=== PATIENT | female | born 1990 | race Caucasian/White ===

== ENCOUNTER 2019-09-27 13:45 | Emergency (ER) | payer OTHER, MEDICARE ==
[2019-09-27] MEDS ORDERED: IBUPROFEN 800 MG TABLET PO ONE (14:48)
--- NOTE | 2019-09-27 14:51 | ER Document Report ---
HPI - HPI Time Seen by Provider: 09/27/19 14:41 Onset: Other - 2 days Onset/Duration: Persistent Quality of pain: Achy Pain Level: 5 Context: Patient states she was in an adult gymnastics class on a friend at her arm into the hoop and fell with the hoop underneath her armpit. Patient complains of right shoulder and scapula pain. Patient states she does have a previous history of shoulder injury and was told that she may need orthopedic surgery. Patient without any head injury or loss of consciousness. Exacerbated by: Movement Relieved by: Denies Similar symptoms previously: Yes - shoulder injury Recently seen / treated by doctor: No - ROS ROS below otherwise negative: Yes Systems Reviewed and Negative: Yes All other systems reviewed and negative - NEURO Neurology: DENIES: Weakness - GASTROINTESTINAL Gastrointestinal: DENIES: Nausea - REPRODUCTIVE LMP: Irregular, 1 year ago Reproductive: DENIES: : - MUSCULOSKELETAL Musculoskeletal: REPORTS: Extremity pain - RUE, Back Pain - DERM Skin Color: Normal Skin Problems: None Past Medical History - General Information source: Patient - Social History Smoking Status: Never Smoker Frequency of alcohol use: None Drug Abuse: None Occupation: none Family History: Reviewed & Not Pertinent Patient has homicidal ideation: No Neurological Medical History: Reports: Hx Seizures Traumatic Medical History: Reports: Hx Traumatic Brain Injury Surgical Hx: Negative Vertical Provider Document - CONSTITUTIONAL Agree With Documented VS: Yes Exam Limitations: No Limitations General Appearance: WD/WN, No Apparent Distress - HEENT HEENT: Atraumatic, Normocephalic - NECK Neck: Normal Inspection, Supple - RESPIRATORY Respiratory: Breath Sounds Normal, No Respiratory Distress - CARDIOVASCULAR Cardiovascular: Regular Rate, Regular Rhythm, No Murmur Pulses: Normal: Radial - BACK Back: Abnormal Inspection - Right trapezius muscle tenderness, tenderness over right scapula - MUSCULOSKELETAL/EXTREMETIES Musculoskeletal/Extremeties: MAEW, Tender - Right shoulder joint tenderness with abduction and extension, no obvious deformity dislocation, No Edema - NEURO Level of Consciousness: Awake, Alert, Appropriate Motor/Sensory: No Motor Deficit, No Sensory Deficit - DERM Integumentary: Warm, Dry, No Rash Course - Vital Signs Vital signs: Temp Pulse Resp BP Pulse Ox 98.7 F 16 L 16 110/67 99 09/27/19 14:12 09/27/19 14:12 09/27/19 14:12 09/27/19 14:12 09/27/19 14:12 - Diagnostic Test Radiology reviewed: Image reviewed, Reports reviewed Procedures - Immobilization Right Shoulder Pre-Proc Neuro Vasc Exam: Normal Immobilizer type: Shoulder immobilizer Performed by: RN Post-Proc Neuro Vasc Exam: Normal Alignment checked and good: Yes Discharge - Discharge Clinical Impression: Sprain of shoulder, right Qualifiers: Encounter type: initial encounter Shoulder sprain type: unspecified sprain Qualified Code(s): S43.401A - Unspecified sprain of right shoulder joint, initial encounter Trapezius muscle strain Qualifiers: Encounter type: initial encounter Laterality: right Qualified Code(s): S46.811A - Strain of other muscles, fascia and tendons at shoulder and upper arm level, right arm, initial encounter Condition: Stable Disposition: HOME, SELF-CARE Instructions: Muscle Strain ([facility]), Shoulder Injury ([facility]), Temporary Sling ([facility]) Additional Instructions: Return immediately for any new or worsening symptoms Followup with your primary care provider, call tomorrow to make a followup appointment Follow-up with orthopedics for further evaluation, call Saturday for an appointment Wear sling for the next 4 days while awake only, perform gentle range of motion exercises daily Prescriptions: Lidocaine [Lidoderm 5% (700 mg) Transdermal Patch] 1 patch TP DAILY PRN #10 adh..patch PRN Reason: Naproxen [Naprosyn 250 Nmg Tablet] 1 tab PO BID #14 tablet Referrals: [facility] [Provider Group] - Follow up as needed [facility] [Provider Group] - Follow up as needed
--- NOTE | 2019-09-27 15:28 | RADIOLOGY REPORT (SQ) ---
EXAM DESCRIPTION: SCAPULA RIGHT; SHOULDER RIGHT 2 OR MORE VIEWS IMAGES COMPLETED DATE/TIME: 09/27/2019 2:11 pm REASON FOR STUDY: fall, shoulder/scapula pain. COMPARISON: None. NUMBER OF VIEWS: Four views. TECHNIQUE: Internal rotation, external rotation, and Y view images acquired of the right shoulder. AP view of the scapula. LIMITATIONS: None. FINDINGS: MINERALIZATION: Normal. BONES: No acute fracture. No worrisome bone lesions. JOINTS: No dislocation. VISUALIZED LUNGS AND RIBS: No pneumothorax. No rib fracture. SOFT TISSUES: No radiopaque foreign body. OTHER: No other significant finding. IMPRESSION: No radiographic abnormality of the right shoulder or scapula. No acute fracture or disl ocation. TECHNICAL DOCUMENTATION: JOB ID: [id number] 2010 [employer]- All Rights Reserved Reading location - IP/workstation name: [email or web address]
--- NOTE | 2019-09-27 15:28 | RADIOLOGY REPORT (SQ) ---
EXAM DESCRIPTION: SCAPULA RIGHT; SHOULDER RIGHT 2 OR MORE VIEWS IMAGES COMPLETED DATE/TIME: 09/27/2019 2:11 pm REASON FOR STUDY: fall, shoulder/scapula pain. COMPARISON: None. NUMBER OF VIEWS: Four views. TECHNIQUE: Internal rotation, external rotation, and Y view images acquired of the right shoulder. AP view of the scapula. LIMITATIONS: None. FINDINGS: MINERALIZATION: Normal. BONES: No acute fracture. No worrisome bone lesions. JOINTS: No dislocation. VISUALIZED LUNGS AND RIBS: No pneumothorax. No rib fracture. SOFT TISSUES: No radiopaque foreign body. OTHER: No other significant finding. IMPRESSION: No radiographic abnormality of the right shoulder or scapula. No acute fracture or disl ocation. TECHNICAL DOCUMENTATION: JOB ID: [id number] 2010 [employer]- All Rights Reserved Reading location - IP/workstation name: [email or web address]
[2019-09-27] MEDS ORDERED: LIDOCAINE 5% (700 MG) TRANSDERMAL ADH..PATCH TP ONE (15:31)
[2019-09-27 15:55] VITALS: BP 112/79
== END 2019-09-27 15:58 | disposition home or self-care (01) ==
LOC: ER 13:45
DX: S43.401A Unspecified sprain of right shoulder joint, initial encounter (principal); S46.811A Strain of other muscles, fascia and tendons at shoulder and upper arm level, right arm, initial encounter; M25.511 Pain in right shoulder; M79.601 Pain in right arm; M54.9 Dorsalgia, unspecified; X58.XXXA Exposure to other specified factors, initial encounter; Y93.43 Activity, gymnastics
CPT/HCPCS: 99283

== ENCOUNTER → 2020-01-07 | Day surgery (SDC) | payer MEDICARE ==
--- NOTE | 2020-01-07 15:28 | RADIOLOGY REPORT (SQ) ---
EXAM DESCRIPTION: ARTHRO HIP INJ W/ANESTHESIA; FLUORO/NEEDLE PLACEMENT IMAGES COMPLETED DATE/TIME: 01/07/2020 2:23 pm REASON FOR STUDY: M25.851 OTHER SPECIFIED JOINT DISORDERS, RIGHT HIP M25.851 OTHER SPECIFIED JOINT DISORDERS, RIGHT HIP COMPARISON: None. FLUOROSCOPY TIME: 7 seconds 1 images saved to PACS. LIMITATIONS: None. PROCEDURE: Procedure, risks, benefits and alternatives explained to patient who then gave written c onsent. The right hip was marked and a time-out was called for correct marking verification. Entry site marked using fluoroscopic guidance. Hip prepped and draped using sterile technique. Local ane sthesia achieved using 1% lidocaine injection. Hypodermic needle introduced into the joint space un ulises direct fluoroscopic visualization. Non-ionic contrast instilled to confirm intra-articular posit ion. Dilute gadolinium solution then injected. Needle removed and entry site covered with sterile bandage. No immediate complications noted. TECHNIQUE: Digital images acquired during fluoroscopy and stored on PACS. Patient immediately take n to the MR suite for additional imaging. INJECTION LOCATION: Right hip. CONTRAST TYPE AND AMOUNT: 1 cc Omnipaque 10 cc Prohance/Saline mixture. IMPRESSION: SUCCESSFUL NEEDLE PLACEMENT AND INJECTION FOR RIGHT HIP MR ARTHROGRAM. COMMENT: Quality ID [id number]: Final reports for procedures using fluoroscopy that document radiation exp osure indices, or exposure time and number of fluorographic images (if radiation exposure indices are not available) TECHNICAL DOCUMENTATION: JOB ID: [id number] 2010 [employer]- All Rights Reserved Reading location - IP/workstation name: [email or web address]
--- NOTE | 2020-01-07 15:32 | RADIOLOGY REPORT (SQ) ---
EXAM DESCRIPTION: MRI RT LOWER JOINT WITH IMAGES COMPLETED DATE/TIME: 01/07/2020 3:12 pm REASON FOR STUDY: M25.851 OTHER SPECIFIED JOINT DISORDERS, RIGHT HIP M25.851 OTHER SPECIFIED JOINT DISORDERS, RIGHT HIP COMPARISON: None. TECHNIQUE: Post arthrogram imaging is performed using T1 and T1 and T2 fat saturated sequences of th e pelvis and specific hip of interest. LIMITATIONS: None. FINDINGS: JOINT DISTENSION: Adequate. No loose body. BONE MARROW: No edema. No marrow replacement. FEMORAL HEAD, NECK, AND ACETABULUM: No occult fracture. No osteophytes or subchondral cysts. Normal s phericity of femoral head/neck junction. No acetabular dysplasia. No evidence of femoroacetabular imp ingement. PUBIC RAMI AND ISCHIUM: No occult fracture. SACRUM AND IVELISSE: SI joints normal in signal. No occult fracture. EFFUSIONS: None. LABRUM AND CARTILAGE: No labral tear. Cartilage of normal thickness without delamination. MUSCLES AND SOFT TISSUES: Adductors and piriformis normal. Abductors and greater trochanteric bursa n ormal without edema or fluid. Iliopsoas bursa without fluid. Hamstring attachments without edema or t ear. PELVIC SOFT TISSUES: No masses or adenopathy. SCIATIC NERVE: Identified without masses. OTHER: No other significant finding. IMPRESSION: NORMAL MRI ARTHROGRAM OF THE HIP. TECHNICAL DOCUMENTATION: JOB ID: [id number] 2010 [employer]- All Rights Reserved Reading location - IP/workstation name: [email or web address]
== END ==
LOC: RAD 13:15
PROVIDERS: ATTEND Orthopaedic Surgery Sports Medicine
DX: M25.851 Other specified joint disorders, right hip (principal)
CPT/HCPCS: 73722; 77002; 27095; A9576

== ENCOUNTER 2020-02-22 07:27 | Observation (INO) | payer MEDICAID, MEDICARE ==
[~2020-02-22 07:27] MED LIST: PROPOFOL INJ 200 MG/20 ML VIAL IV ONE
[2020-02-22] MEDS ORDERED: MIDAZOLAM 2 MG/2 ML INJ ONE ×2 (08:56→09:16)
[2020-02-22] MEDS ORDERED: LORAZEPAM INJ 2 MG/1 ML VIAL ONE ×2 (09:27→11:05)
[2020-02-22] MEDS ORDERED: LEVETIRACETAM 1500 MG/NACL-ISO 1,500 MG/100 ML RTUPB IV ONE (10:07)
[2020-02-22 11:10] LABS: HEMATOCRIT 40.9 % (36.0-47.0); HEMOGLOBIN 13.9 g/dL (12.0-15.5); MEAN CORPUSCULAR HEMOGLOBIN 30.3 pg (27.0-33.4); MEAN CORPUSCULAR VOLUME 89 fl (80-97); PLATELET COUNT 305 10^3/uL (150-450); RED CELL DISTRIBUTION WIDTH 13.3 % (11.5-14.0); WHITE BLOOD COUNT 4.8 10^3/uL (4.0-10.5)
[2020-02-22] MEDS ORDERED: LORAZEPAM INJ 2 MG/1 ML VIAL IV ONE (11:19)
[2020-02-22] MEDS ORDERED: ACETAMINOPHEN 325 MG TABLET PO PRN (12:11)
[2020-02-22] MEDS ORDERED: ONDANSETRON 4 MG TAB.RAPDIS PO PRN (12:11)
[2020-02-22 12:16] LABS: ALKALINE PHOSPHATASE 76 U/L (38-126); ANION GAP 9 (5-19); ASPARTATE AMINO TRANSFERASE 18 U/L (14-36); BILIRUBIN,TOTAL 0.7 mg/dL (0.2-1.3); BLOOD UREA NITROGEN 10 mg/dL (7-20); CALCIUM 9.6 mg/dL (8.4-10.2); CARBON DIOXIDE 25 mmol/L (22-30); CHLORIDE 105 mmol/L (98-107); CREATINE KINASE 56 U/L (30-135); GLUCOSE 85 mg/dL (75-110); POTASSIUM 4.1 mmol/L (3.6-5.0); TOTAL PROTEIN 7.5 g/dL (6.3-8.2)
[2020-02-22] MEDS ORDERED: LORAZEPAM INJ 2 MG/1 ML VIAL IV PRN (12:19)
[2020-02-22] MEDS ORDERED: PHENYTOIN SODIUM INJ/PF 250 MG/5 ML SDV IV PRN (12:20)
--- NOTE | 2020-02-22 14:32 | Operative Report ---
Operative Report DATE OF SURGERY: 02/22/20 Operative Report: The risk, benefits and alternatives of the procedure including the risk of bleeding, perforation requiring surgery have been explained to the patient in detail and informed consent has been obtained. Patient is placed in left, lateral decubital position. Timeout was called. Propofol medication is administered. Rectal examination is done which did not reveal any masses, tears or fissures. An Olympus videoscope was introduced into the patient's rectum. Scope was then carefully advanced all the way to the cecum. Cecum was identified by the usual anatomical landmarks including the ileocecal valve as well as the appendiceal office. Intubation of the terminal ileum was done. Scope was then sequentially pulled back via the various segments of the colon including the ascending colon, hepatic flexure, transverse colon, splenic flexure, descending colon finding to the rectosigmoid portions of the colon. Retroflexion maneuver is performed. The risks benefits and alternatives of the procedure explained to the patient in detail and informed consent is obtained.A GIF Olympus video scope was inserted into the patient's mouth and hypopharynx, the esophagus is identified intubated and insufflated, the scope was then advanced through the esophagus stomach and duodenum, retroflexion maneuver is done, the esophagus stomach and first and second portions of the duodenum examined PREOPERATIVE DIAGNOSIS: Change of bowel habits. Dyspepsia POSTOPERATIVE DIAGNOSIS: Terminal ileum biopsy rule out Crohn's disease. Duodenitis status post biopsy rule out celiac disease gastritis status post biopsy rule out Helicobacter pylori OPERATION: Colonoscopy with biopsy. EGD with biopsy SURGEON: ELIO POOL ANESTHESIA: LMAC TISSUE REMOVED OR ALTERED: As noted above. COMPLICATIONS: Patient noted to have seizure activity following procedure and has subsequently been admitted overnight ESTIMATED BLOOD LOSS: None. INTRAOPERATIVE FINDINGS: As noted above. PROCEDURE: Patient tolerated procedure well. No complications related to actual procedure were noted post procedure. She did appear to have seizure activity which was treated with Ativan and Versed. She is being admitted overnight with a loading dose of IV Keppra She is on the hospitalist service No GI complications are noted We will wait on biopsy Further recommendations to follow
[2020-02-22] MEDS ORDERED: METOPROLOL TARTRATE 50 MG TABLET PO PRN (17:34)
[2020-02-22] MEDS ORDERED: METOPROLOL TARTRATE PF/INJ 5 MG/5 ML SDV IV PRN (17:39)
--- NOTE | 2020-02-22 18:49 | PDOC H&P ---
History of Present Illness Admission Date/PCP: 02/22/20 12:10 ELISHA ESPINAL MD Patient complains of: Seizure History of Present Illness: MYKE HANDY is a 29 year old female with significant history of seizure disorder (treated with Keppra) who is transferred over to our care from outpatient surgery due to seizure activity following outpatient EGD/colonoscopy. Per nurse patient expressed five total episodes of tonic-clonic seizure activity each lasting 2-5 minutes in duration with ~30 seconds without serizure activity between each. Last seizure event at 10:00. All events were witnessed. She was treated with versed and ativan. Patient with post-ictal state as per nursing. Patient reports hx of seizure disorder since TBI in 2015. She has two tonic- clonic seizures on average per month with several "minor-seizures" daily. Reports aura of sweet smell and taste. Most recent seizure event December 2019 following breast augmentation. States that todays seizure episode similar to episodes in the past. She takes 1,000mg Keppra daily but has been taking decreased Keppra dose past two days, as instructed to by doctor. Her neurologist is with the [place] and she has not seen them for several years. Her last EEG was in 2016. On initial evaluation patient is found to be hemodynamically stable with VSS. She is alert and oriented. No post-ictal state noted. Labs benign including CK. Patient will be admitted to the hospitalist team for further observation and treatment. Past Medical History Cardiac Medical History: Denies: Congestive Heart Failure, Coronary Artery Disease, Myocardial Infarction, Hypertension, Pulmonary Embolism, Heart Murmur Pulmonary Medical History: Reports: Asthma, Pneumonia Denies: Bronchitis, Chronic Obstructive Pulmonary Disease (COPD) Neurological Medical History: Reports: Migraine, Seizures Endocrine Medical History: Denies: Hyperthyroidism, Hypothyroidism Renal/ Medical History: Denies: Chronic Kidney Disease Malignancy Medical History: Reports: None GI Medical History: Reports: Gastroesophageal Reflux Disease Musculoskeltal Medical History: Denies: Arthritis Psychiatric Medical History: Reports: Depression Denies: Alcohol Dependency, Tobacco Dependency Traumatic Medical History: Reports: Traumatic Brain Injury Hematology: Reports: Anemia Past Surgical History Past Surgical History: Reports: Other - Breast augmentation Social History Information Source: Patient Lives with: Family, Spouse/Significant other Smoking Status: Never Smoker Electronic Cigarette use?: No Frequency of Alcohol Use: Rare Hx Recreational Drug Use: No Drugs: None - Advance Directive Resuscitation Status: Full Code Family History Family History: Other - Significant history of rheumatoid disease in family Parental Family History Reviewed: Yes Children Family History Reviewed: Yes Sibling(s) Family History Reviewed.: Yes Medication/Allergy Home Medications: Levetiracetam [Keppra 500 mg Tablet] 1,000 mg PO DAILY 02/22/20 Linaclotide [Linzess] 72 mg PO DAILY 02/22/20 Topiramate [Topamax] 25 mg PO DAILY 02/22/20 Allergies/Adverse Reactions: acetaminophen [From Percocet] Allergy (Severe, Verified 02/22/20 07:41) Swelling of Throat oxycodone [From Percocet] Allergy (Severe, Verified 02/22/20 07:41) Swelling of Throat strawberry Allergy (Severe, Verified 02/22/20 07:41) Anaphylaxis milk Adverse Reaction (Mild, Verified 02/22/20 07:41) Diarrhea Review of Systems Constitutional: PRESENT: headache(s) - chronic / daily. ABSENT: chills, fatigue, fever(s), night sweats, weakness Eyes: ABSENT: visual disturbances Ears: ABSENT: hearing changes Nose, Mouth, and Throat: PRESENT: headache(s). ABSENT: vertigo Cardiovascular: ABSENT: chest pain, dyspnea on exertion Respiratory: ABSENT: cough, dyspnea Gastrointestinal: ABSENT: abdominal pain, diarrhea, nausea, vomiting Genitourinary: ABSENT: difficulty urinating, dysuria Musculoskeletal: ABSENT: back pain, joint swelling Integumentary: ABSENT: pruritus, rash Neurological: PRESENT: convulsions, other - Seizures. ABSENT: confusion, dizziness, focal weakness, syncope, tingling, tremor(s), vertigo, weakness Psychiatric: PRESENT: depression. ABSENT: anxiety, hallucinations, homidical ideation, suicidal ideation Endocrine: ABSENT: cold intolerance Hematologic/Lymphatic: ABSENT: easy bleeding, easy bruising, lymphadenopathy Physical Exam Vital Signs: Temp Pulse Resp BP Pulse Ox 98.1 F 117 H 17 95/64 L 100 02/22/20 16:24 02/22/20 16:24 02/22/20 16:24 02/22/20 16:24 02/22/20 16:24 Intake & Output 02/21/20 02/22/20 02/23/20 06:59 06:59 06:59 Intake Total 600 Balance 600 Weight 67.72 kg General appearance: PRESENT: no acute distress, cooperative, well-developed, well-nourished Head exam: PRESENT: atraumatic, normocephalic Eye exam: PRESENT: conjunctival injection, EOMI, PERRLA. ABSENT: nystagmus, scleral icterus Mouth exam: PRESENT: moist, neck supple, tongue midline Neck exam: PRESENT: full ROM. ABSENT: lymphadenopathy, tenderness, tracheal deviation Respiratory exam: PRESENT: clear to auscultation juvenal, symmetrical, unlabored. ABSENT: crackles, decreased breath sounds, tachypnea, wheezes Cardiovascular exam: PRESENT: +S1, +S2, tachycardia. ABSENT: diastolic murmur, systolic murmur Pulses: PRESENT: normal radial pulses GI/Abdominal exam: PRESENT: normal bowel sounds, soft. ABSENT: distended, tenderness Extremities exam: PRESENT: full ROM. ABSENT: tenderness Musculoskeletal exam: PRESENT: ambulatory, full ROM. ABSENT: deformity, dislocation Neurological exam: PRESENT: alert, awake, oriented to person, oriented to place, oriented to time, oriented to situation, CN II-XII grossly intact, normal gait, other - Without post-ictal state Psychiatric exam: PRESENT: appropriate affect, normal mood Skin exam: PRESENT: dry, intact, warm Results Laboratory Results: 02/22/20 10:54 02/22/20 10:54 02/22/20 02/22/20 10:54 10:54 WBC 4.8 RBC 4.60 Hgb 13.9 Hct 40.9 MCV 89 MCH 30.3 MCHC 34.0 RDW 13.3 Plt Count 305 Sodium 139.3 Potassium 4.1 Chloride 105 Carbon Dioxide 25 Anion Gap 9 BUN 10 Creatinine 0.68 Est GFR ( Amer) > 60 Glucose 85 Calcium 9.6 Total Bilirubin 0.7 AST 18 Alkaline Phosphatase 76 Total Protein 7.5 Albumin 4.0 02/22/20 10:54 Creatine Kinase 56 Assessment and Plan - Diagnosis (1) Seizure disorder Is this a current diagnosis for this admission?: Yes Plan: Seizure vs post anesthesia recovery reaction. Pt reports reduced dose Keppra x2 days. Received 4mg versed and 6mg ativan. Without seizure activity since 10:00. Pt given 1500mg Keppra IV. Start Keppra 1000mg BID PO tomorrow. Ativan available in event of further seizure activity. (2) Migraine Qualifiers: Migraine type: chronic without aura Status migrainosus presence: without status migrainosus Intractability: not intractable Qualified Code(s): G43.709 - Chronic migraine without aura, not intractable, without status migrainosus Is this a current diagnosis for this admission?: Yes Plan: Home medication Topiramat 25mg PO daily. Resume. (3) Depression Qualifiers: Depression Type: major depressive disorder Major depression recurrence: unspecified whether recurrent Major depression episode severity: unspecified Is this a current diagnosis for this admission?: Yes (4) Change in bowel habit Is this a current diagnosis for this admission?: Yes Plan: EKG/colonoscopy completed today for investigation of change in bowel habbit. Results pending. - Plan Summary Summary: Switch over to PO keppra at home dose of 1000mg BID tomorrow. Plan for discharge home tomorrow. - Time Time Spent with patient: 35 or more minutes Medications reviewed and adjusted accordingly: Yes Anticipated Discharge Disposition: Home, Self Care Anticipated Discharge Timeframe: within 24 hours
[2020-02-22] MEDS: RINGERS SOLUTION,LACTATED 1,000 ML IV PRN (18:51)
[2020-02-23] MEDS: RINGERS SOLUTION,LACTATED 1,000 ML IV PRN ×2 (04:25→18:44)
[2020-02-23 05:56] LABS: HEMATOCRIT 38.4 % (36.0-47.0); HEMOGLOBIN 13.1 g/dL (12.0-15.5); MEAN CORPUSCULAR HEMOGLOBIN 30.1 pg (27.0-33.4); MEAN CORPUSCULAR HGB CONC 34.1 g/dL (32.0-36.0); MEAN CORPUSCULAR VOLUME 88 fl (80-97); PLATELET COUNT 301 10^3/uL (150-450); RED BLOOD COUNT 4.35 10^6/uL (3.72-5.28); RED CELL DISTRIBUTION WIDTH 12.8 % (11.5-14.0); WHITE BLOOD COUNT 4.8 10^3/uL (4.0-10.5)
[2020-02-23 06:12] LABS: ANION GAP 8 (5-19); BLOOD UREA NITROGEN 10 mg/dL (7-20); CALCIUM 9.1 mg/dL (8.4-10.2); CARBON DIOXIDE 25 mmol/L (22-30); CHLORIDE 106 mmol/L (98-107); GLUCOSE 74 mg/dL (75-110); POTASSIUM 4.1 mmol/L (3.6-5.0)
[2020-02-23] MEDS: LEVETIRACETAM 500 MG TABLET PO SCH ×2 (09:35→21:44)
[2020-02-23] MEDS ORDERED: TOPIRAMATE 25 MG TABLET PO SCH (10:00)
[2020-02-23] MEDS ORDERED: LORAZEPAM INJ 2 MG/1 ML VIAL ONE ×3 (15:22→16:30)
[2020-02-23] MEDS ORDERED: LORAZEPAM INJ 2 MG/1 ML VIAL IV ONE (15:30)
[2020-02-23] MEDS ORDERED: LORAZEPAM INJ 2 MG/1 ML VIAL IV PRN (18:27)
[2020-02-23] MEDS ORDERED: INFLUENZA QUAD (6MOS+) 2020-21 VAC 0.5 ML SYR IM ONE (18:30)
--- NOTE | 2020-02-23 18:39 | PDOC PROGRESS REPORT ---
Subjective Date:: 02/23/20 Subjective:: MYKE HANDY is a 29 year old female with significant history of seizur e disorder (treated with Keppra) who is transferred over to our care from outpatient surgery due to seizure activity following outpatient EGD/colonoscopy. Per nurse patient expressed five total episodes of tonic-clonic seizure activity each lasting 2-5 minutes in duration with ~30 seconds without serizure activity between each. Last seizure event at 10:00. All events were witnessed. She was treated with versed and ativan. Patient with post-ictal state as per nursing. Patient reports hx of seizure disorder since TBI in 2015. She has two tonic- clonic seizures on average per month with several "minor-seizures" daily. Reports aura of sweet smell and taste. Most recent seizure event December 2019 following breast augmentation. States that todays seizure episode similar to episodes in the past. She takes 1,000mg Keppra daily but has been taking decreased Keppra dose past two days, as instructed to by doctor. Her neurologist is with the [place] and she has not seen them for several years. Her last EEG was in 2015. On initial evaluation patient is found to be hemodynamically stable with VSS. She is alert and oriented. No post-ictal state noted. Labs benign including CK. Patient will be admitted to the hospitalist team for further observation and treatment. 02/23/20 patient was seen and examined at bedside. According to her she has been having generalized tonic-clonic seizure about 3x a month as well as "minor" seizures about 3x a day. She has not followed up with a neurologist for years. She is currently on topamax 25 mg daily and keppra 1000 BID. Since resuming care this morning she's had 1 episode of grand mal seizure requiring ativan and 1 episode of non grand mal seizure. I have ordered an EEG and increased her dose of topamax and put PRN ativan. Reason For Visit: SEIZURE Physical Exam Vital Signs: Temp Pulse Resp BP Pulse Ox 98.0 F 115 H 17 119/78 100 02/23/20 16:35 02/23/20 16:35 02/23/20 16:35 02/23/20 16:35 02/23/20 16:35 Intake & Output 02/22/20 02/23/20 02/24/20 06:59 06:59 06:59 Intake Total 2372 640 Balance 2372 640 Weight 72.4 kg General appearance: PRESENT: no acute distress, cooperative Head exam: PRESENT: atraumatic, normocephalic Eye exam: PRESENT: EOMI, PERRLA Mouth exam: PRESENT: moist Neck exam: PRESENT: full ROM Respiratory exam: PRESENT: clear to auscultation juvenal, symmetrical, unlabored Cardiovascular exam: PRESENT: RRR, +S1, +S2 GI/Abdominal exam: PRESENT: normal bowel sounds, soft. ABSENT: rebound, tenderness Extremities exam: PRESENT: full ROM Musculoskeletal exam: PRESENT: full ROM Neurological exam: PRESENT: alert, awake, oriented to person, oriented to place, oriented to time, oriented to situation Psychiatric exam: PRESENT: normal mood Skin exam: PRESENT: normal color Results Laboratory Results: 02/23/20 05:04 02/23/20 05:04 02/23/20 02/23/20 05:04 05:04 WBC 4.8 RBC 4.35 Hgb 13.1 Hct 38.4 MCV 88 MCH 30.1 MCHC 34.1 RDW 12.8 Plt Count 301 Sodium 139.4 Potassium 4.1 Chloride 106 Carbon Dioxide 25 Anion Gap 8 BUN 10 Creatinine 0.68 Est GFR ( Amer) > 60 Glucose 74 L Calcium 9.1 Magnesium 1.9 02/22/20 10:54 Creatine Kinase 56 Assessment and Plan - Diagnosis (1) Seizure disorder Is this a current diagnosis for this admission?: Yes Plan: Seizure vs post anesthesia recovery reaction. Pt reports reduced dose Keppra x2 days. Received 4mg versed and 6mg ativan. Pt given 1500mg Keppra IV. Start Keppra 1000mg BID PO increased topiramate 50 mg daily from 25 EEG ordered seizure precaution Ativan available in event of further seizure activity. (2) Migraine Qualifiers: Migraine type: chronic without aura Status migrainosus presence: without status migrainosus Intractability: not intractable Qualified Code(s): G43.709 - Chronic migraine without aura, not intractable, without status migrainosus Is this a current diagnosis for this admission?: Yes Plan: Home medication Topiramate 50mg PO daily. Resume. (3) Change in bowel habit Is this a current diagnosis for this admission?: Yes Plan: EKG/colonoscopy completed today for investigation of change in bowel habit. Results reviewed essentially negative findings (4) Depression Qualifiers: Depression Type: major depressive disorder Major depression recurrence: unspecified whether recurrent Major depression episode severity: unspecified Is this a current diagnosis for this admission?: Yes Plan: - on sertralline? will confirm with the patient - Plan Summary Summary: - Time Time Spent with patient: 35 or more minutes Medications reviewed and adjusted accordingly: Yes Anticipated Discharge Disposition: Home, Self Care Anticipated Discharge Timeframe: within 48 hours
[2020-02-24 06:49] LABS: HEMATOCRIT 37.4 % (36.0-47.0); HEMOGLOBIN 12.6 g/dL (12.0-15.5); MEAN CORPUSCULAR HEMOGLOBIN 30.2 pg (27.0-33.4); MEAN CORPUSCULAR HGB CONC 33.8 g/dL (32.0-36.0); MEAN CORPUSCULAR VOLUME 89 fl (80-97); PLATELET COUNT 296 10^3/uL (150-450); RED BLOOD COUNT 4.19 10^6/uL (3.72-5.28)
[2020-02-24 07:24] LABS: ANION GAP 9 (5-19); BLOOD UREA NITROGEN 7 mg/dL (7-20); CARBON DIOXIDE 23 mmol/L (22-30); CHLORIDE 108 mmol/L (98-107); GLUCOSE 88 mg/dL (75-110); POTASSIUM 3.7 mmol/L (3.6-5.0)
[2020-02-24] MEDS: RINGERS SOLUTION,LACTATED 1,000 ML IV PRN (08:04)
[2020-02-24] MEDS ORDERED: TOPIRAMATE 25 MG TABLET PO SCH (10:00)
[2020-02-24] MEDS: LEVETIRACETAM 500 MG TABLET PO SCH (10:04)
[2020-02-24 11:58] VITALS: BP 124/86
--- NOTE | 2020-02-24 12:09 | PDOC DISCHARGE SUMMARY ---
Impression - Admit/DC Date/PCP Admission Date/Primary Care Provider: 02/22/20 12:10 ELISHA ESPINAL MD Discharge Date: 02/24/20 - Discharge Diagnosis (1) Seizure disorder Is this a current diagnosis for this admission?: Yes (2) Migraine Is this a current diagnosis for this admission?: Yes (3) Change in bowel habit Is this a current diagnosis for this admission?: Yes (4) Depression Is this a current diagnosis for this admission?: Yes - Assessment Summary: - Additional Information Resuscitation Status: Full Code Discharge Diet: As Tolerated Discharge Activity: No Driving, No tub bath Referrals: ELISHA ESPINAL MD [Primary Care Provider] - Prescriptions: Topiramate [Topamax 25 mg Tablet] 50 mg PO DAILY 30 Days #30 tablet Home Medications: Acetaminophen [Tylenol 325 mg Tablet] 325 mg PO DAILYP PRN 02/22/20 Diazepam [Valium 5 mg Tablet] 5 mg PO ASDIR PRN 02/22/20 Levetiracetam [Keppra 500 mg Tablet] 1,000 mg PO BID 02/22/20 Linaclotide [Linzess] 72 mg PO DAILY 02/22/20 Topiramate [Topamax 25 mg Tablet] 50 mg PO DAILY 30 Days #30 tablet 02/24/20 History of Present Illiness History of Present Illness: MYKE HANDY is a 29 year old female, with significant history of seizure disorder (treated with Keppra) who is transferred over to our care from outpatient surgery due to seizure activity following outpatient EGD/colonoscopy. Per nurse patient expressed five total episodes of tonic-clonic seizure activity each lasting 2-5 minutes in duration with ~30 seconds without serizure activity between each. Last seizure event at 10:00. All events were witnessed. She was treated with versed and ativan. Patient with post-ictal state as per nursing. Patient reports hx of seizure disorder since TBI in 2015. She has two tonic- clonic seizures on average per month with several "minor-seizures" daily. Reports aura of sweet smell and taste. Most recent seizure event December 2019 following breast augmentation. States that todays seizure episode similar to episodes in the past. She takes 1,000mg Keppra daily but has been taking decreased Keppra dose past two days, as instructed to by doctor. [facility] and she has not [facility] them for several years. Her last EEG was in 2016. On initial evaluation patient is found to be hemodynamically stable with VSS. She is alert and oriented. No post-ictal state noted. Labs benign including CK. Patient will be admitted to the hospitalist team for further observation and treatment. Hospital Course Hospital Course: 02/23/20 patient was seen and examined at bedside. According to her she has been having generalized tonic-clonic seizure about 3x a month as well as "minor" seizures about 3x a day. She has not followed up with a neurologist for years. She is currently on topamax 25 mg daily and keppra 1000 BID. Since resuming care this morning she's had 1 episode of grand mal seizure requiring ativan and 1 episode of non grand mal seizure. I have ordered an EEG and increased her dose of topamax and put PRN ativan. 02/24/20 She was seen and examined at bedside, no further seizure episodes. EEG done awaiting result. She is advised to follow up with a neurologist [facility] for recurrent seizures. Physical Exam Vital Signs: Temp Pulse Resp BP Pulse Ox 97.5 F 65 16 97/58 L 98 02/24/20 10:00 02/24/20 08:00 02/24/20 08:00 02/24/20 01:06 02/24/20 08:00 Intake & Output 02/23/20 02/24/20 02/25/20 06:59 06:59 06:59 Intake Total 2372 2720 Balance 2372 2720 Weight 72.4 kg 73.1 kg General appearance: PRESENT: no acute distress, cooperative Head exam: PRESENT: atraumatic, normocephalic Eye exam: PRESENT: EOMI, PERRLA Mouth exam: PRESENT: moist Neck exam: PRESENT: full ROM Cardiovascular exam: PRESENT: RRR, +S1, +S2 Pulses: PRESENT: +2 pedal pulses bilateral GI/Abdominal exam: PRESENT: normal bowel sounds, soft. ABSENT: rebound, tenderness Extremities exam: PRESENT: full ROM Musculoskeletal exam: PRESENT: full ROM Neurological exam: PRESENT: alert, awake, oriented to person, oriented to place, oriented to time, oriented to situation Psychiatric exam: PRESENT: normal mood Skin exam: PRESENT: normal color Results Laboratory Results: WBC 5.0 10^3/uL (4.0-10.5) 02/24/20 06:30 RBC 4.19 10^6/uL (3.72-5.28) 02/24/20 06:30 Hgb 12.6 g/dL (12.0-15.5) 02/24/20 06:30 Hct 37.4 % (36.0-47.0) 02/24/20 06:30 MCV 89 fl (80-97) 02/24/20 06:30 MCH 30.2 pg (27.0-33.4) 02/24/20 06:30 MCHC 33.8 g/dL (32.0-36.0) 02/24/20 06:30 RDW 13.0 % (11.5-14.0) 02/24/20 06:30 Plt Count 296 10^3/uL (150-450) 02/24/20 06:30 Sodium 140.4 mmol/L (137-145) 02/24/20 06:30 Potassium 3.7 mmol/L (3.6-5.0) 02/24/20 06:30 Chloride 108 mmol/L (98-107) H 02/24/20 06:30 Carbon Dioxide 23 mmol/L (22-30) 02/24/20 06:30 Anion Gap 9 (5-19) 02/24/20 06:30 BUN 7 mg/dL (7-20) 02/24/20 06:30 Creatinine 0.69 mg/dL (0.52-1.25) 02/24/20 06:30 Est GFR ( Amer) > 60 (>60) 02/24/20 06:30 Est GFR (MDRD) Non-Af > 60 (>60) 02/24/20 06:30 Glucose 88 mg/dL (75-110) 02/24/20 06:30 POC Glucose 102 mg/dL (70-110) 02/23/20 15:26 Calcium 9.0 mg/dL (8.4-10.2) 02/24/20 06:30 Magnesium 1.9 mg/dL (1.6-2.3) 02/23/20 05:04 Total Bilirubin 0.7 mg/dL (0.2-1.3) 02/22/20 10:54 Direct Bilirubin 0.0 mg/dL (0.0-0.4) 02/22/20 10:54 Neonat Total Bilirubin Not Reportable 02/22/20 10:54 Neonat Direct Bilirubin Not Reportable 02/22/20 10:54 Neonat Indirect Bili Not Reportable 02/22/20 10:54 AST 18 U/L (14-36) 02/22/20 10:54 ALT 5 U/L (<35) 02/22/20 10:54 Alkaline Phosphatase 76 U/L (38-126) 02/22/20 10:54 Creatine Kinase 56 U/L (30-135) 02/22/20 10:54 Total Protein 7.5 g/dL (6.3-8.2) 02/22/20 10:54 Albumin 4.0 g/dL (3.5-5.0) 02/22/20 10:54 Plan Plan of Treatment: - MUST follow up with Neurologist as soon as possible for seizure management - follow up with Gastroenterology for chronic constipation Time Spent: Greater than 30 Minutes Stroke Is this a Stroke Patient?: No Acute Heart Failure Is this a Heart Failure Patient?: No
--- NOTE | 2020-02-24 15:42 | NEURO WORKBENCH EEG REPORT ---
EEG Report Patient: Tressa Saravia ID: [id number] Referring Doctor: Priscilla Nichols DOS: 02/24/2020 Medications: Keppra, Topamax History This is a 29 year old left handed female with a history of seizures since age 21, TBI, migraine, asthma, pneumonia, GERD, anxiety, depression, anemia, breast augmentation, hernia repair, liposuction who had seizures on 02/21 and 02/22. She shakes on and off. This EEG was requested for seizures. EEG Interpretation This EEG was recorded in the awake, drowsy, and sleep states. The awake EEG is characterized by a well-organized background with a well-developed and reactive posterior dominant rhythm of 9.5 Hz. The remainder of the background was characterized by a combination of alpha with some beta frequencies. Drowsiness was characterized by slowing of the background rhythms. Vertex waves and sleep spindles were seen in the midline head regions. Photic stimulation resulted in no significant changes. There were no epileptiform abnormalities. There was one brief episode of minimal head shaking that had no EEG correlate aside from movement artifact. The EKG showed a regular rhythm with a period of possible tachycardia that may have been impaired by artifact. EEG Classification * EKG possible tachycardia with artifact EEG Impression This EEG is within normal limits for age. The EKG had artifact with what appeared to be possible tachycardia which may require further investigation. There was one episode of what appeared to be minimal head shaking with no EEG correlate. INTERPRETING NEUROLOGIST: Alessia Sol MD, FRCPC Board Certified in Neurology, with special qualification in Child Neurology, and in Clinical Neurophysiology [facility]
== END 2020-02-24 12:57 | disposition home or self-care (01) ==
LOC: END 07:27 → 5 11:43
PROVIDERS: ADMIT Internal Medicine Gastroenterology; ATTEND Internal Medicine
DX: K29.50 Unspecified chronic gastritis without bleeding (principal); K29.80 Duodenitis without bleeding; K50.00 Crohn's disease of small intestine without complications; G40.409 Other generalized epilepsy and epileptic syndromes, not intractable, without status epilepticus; S06.9X0S Unspecified intracranial injury without loss of consciousness, sequela; X58.XXXS Exposure to other specified factors, sequela; G43.709 Chronic migraine without aura, not intractable, without status migrainosus; K59.09 Other constipation; F32.9 Major depressive disorder, single episode, unspecified; K59.00 Constipation, unspecified; Z79.899 Other long term (current) drug therapy
CPT/HCPCS: 95819 ×2; 43239; 45380; 36415 ×3; 80177; 82962; 82550; 83735; 85027 ×3; 80048 ×2; 80053; 88305 ×2; 00813; G0378 ×3; J2250; A9270 ×5; J2060 ×2; J3490; J7120 ×3; J2704; J1953; 813; 99281; S0119

== ENCOUNTER 2020-03-07 11:33 | Emergency (ER) | payer OTHER, MEDICARE ==
[2020-03-07 14:41] LABS: ABSOLUTE MONOCYTES (AUTO) 0.4 10^3/uL (0.1-1.4); ABSOLUTE NEUT (AUTO) 2.6 10^3/uL (1.7-8.2); BASOPHILS % (AUTO) 0.6 % (0-2); EOSINOPHILS % (AUTO) 0.9 % (0-6); HEMATOCRIT 43.4 % (36.0-47.0); HEMOGLOBIN 14.8 g/dL (12.0-15.5); LYMPHOCYTES % (AUTO) 24.9 % (13-45); MEAN CORPUSCULAR HEMOGLOBIN 29.6 pg (27.0-33.4); MEAN CORPUSCULAR VOLUME 87 fl (80-97); PLATELET COUNT 310 10^3/uL (150-450); RED BLOOD COUNT 4.98 10^6/uL (3.72-5.28); RED CELL DISTRIBUTION WIDTH 13.1 % (11.5-14.0); SEGMENTED NEUTROPHILS % (AUTO) 63.6 % (42-78); TOTAL CELLS COUNTED % (AUTO) 100 %; WHITE BLOOD COUNT 4.1 10^3/uL (4.0-10.5)
[2020-03-07 14:43] LABS: APPEARANCE,URINE CLOUDY; BILIRUBIN,URINE NEGATIVE (NEGATIVE); COLOR,URINE YELLOW; GLUCOSE, URINE NEGATIVE (NEGATIVE); KETONES,URINE 80 mg/dL (NEGATIVE); LEUKOCYTE ESTERASE,URINE MODERATE (NEGATIVE); NITRITE,URINE NEGATIVE (NEGATIVE); PROTEIN,URINE 100 mg/dL (NEGATIVE); UROBILINOGEN,URINE NEGATIVE mg/dL (<2.0)
[2020-03-07 15:00] LABS: ALBUMIN 4.6 g/dL (3.5-5.0); ALKALINE PHOSPHATASE 96 U/L (38-126); ANION GAP 15 (5-19); ASPARTATE AMINO TRANSFERASE 23 U/L (14-36); BILIRUBIN,DIRECT 0.1 mg/dL (0.0-0.4); BILIRUBIN,TOTAL 0.9 mg/dL (0.2-1.3); BLOOD UREA NITROGEN 4 mg/dL (7-20); CALCIUM 9.7 mg/dL (8.4-10.2); CARBON DIOXIDE 23 mmol/L (22-30); CHLORIDE 100 mmol/L (98-107); TOTAL PROTEIN 8.2 g/dL (6.3-8.2)
[2020-03-07 15:02] LABS: GLUCOSE 69 mg/dL (75-110)
[2020-03-07] MEDS ORDERED: LIDOCAINE 2% VISCOUS SOLN 15 ML UDCUP PO ONE (15:59)
[2020-03-07] MEDS ORDERED: NORMAL SALINE 1000 ML 1,000 ML IV ONE (15:59)
[2020-03-07] MEDS ORDERED: MAG HYDROX/AL HYDROX/SIMETH SUSP 30 ML UDCUP PO ONE (15:59)
[2020-03-07] MEDS ORDERED: METOCLOPRAMIDE HCL ORAL SOLN 10 MG/10 ML UDCUP PO ONE (15:59)
--- NOTE | 2020-03-07 16:00 | ER Document Report ---
ED General - General Chief Complaint: Nausea/Vomiting Stated Complaint: VOMITING/POST ENDOSCOPY Time Seen by Provider: 03/07/20 14:54 Primary Care Provider: JOSE ALBERTO WELLER MD [NO LOCAL MD] - Follow up as needed ELIO POOL MD [Primary Care Provider] - Follow up as needed - [facility] Notes: Patient is a 29-year-old female with a past medical history of TBI with seizures who presents with abdominal pain. Patient states she had an endoscopy and colonoscopy about 2 weeks ago. Since then, she has been unable to eat. She states she vomits up any food. Patient also has burning in her chest that travels up her throat. She states she have some pain in her epigastric region. She saw her GI doctor who put her on Bentyl. She states it is not helping. Patient is able to drink water. No fevers or chills. No cough or cold symptoms. No urinary symptoms. She states she has not had a bowel movement be cause she has not been eating. - Related Data Allergies/Adverse Reactions: acetaminophen [From Percocet] Allergy (Severe, Verified 03/07/20 13:58) Swelling of Throat oxycodone [From Percocet] Allergy (Severe, Verified 03/07/20 13:58) Swelling of Throat strawberry Allergy (Severe, Verified 03/07/20 13:58) Anaphylaxis milk Adverse Reaction (Mild, Verified 03/07/20 13:58) Diarrhea Past Medical History - General Information source: Patient - Social History Smoking Status: Never Smoker Family History: Other - Significant history of rheumatoid disease in family - Past Medical History Cardiac Medical History: Denies: Hx Congestive Heart Failure, Hx Coronary Artery Disease, Hx Heart Attack, Hx Hypertension, Hx Pulmonary Embolism, Hx Heart Murmur Pulmonary Medical History: Reports: Hx Asthma, Hx Pneumonia Denies: Hx Bronchitis, Hx COPD Neurological Medical History: Reports: Hx Migraine, Hx Seizures. Denies: Hx Cerebrovascular Accident Endocrine Medical History: Denies: Hx Hyperthyroidism, Hx Hypothyroidism GI Medical History: Reports: Hx Gastroesophageal Reflux Disease Musculoskeletal Medical History: Denies Hx Arthritis Psychiatric Medical History: Reports: Hx Depression Traumatic Medical History: Reports: Hx Traumatic Brain Injury Past Surgical History: Reports: Hx Breast Surgery, Other - Breast augmentation - Immunizations Hx Diphtheria, Pertussis, Tetanus Vaccination: Yes Review of Systems - Review of Systems Notes: CONSTITUTIONAL: No fever, fatigue or weight loss. SKIN: No rash. CARDIOVASCULAR: No chest pain or edema. RESPIRATORY: No cough, shortness of breath, congestion, or wheezing. GASTROINTESTINAL: Positive for abdominal pain, vomiting, epigastric burning GENITOURINARY: No dysuria. MUSCULOSKELETAL: No joint pain or swelling. LYMPHATIC: No swollen glands. NEUROLOGIC: No seizures. No headache, focal weakness or sensory changes. HEMATOLOGIC: No unusual bruising or bleeding. PSYCHIATRIC: No depression or anxiety. Physical Exam - Vital signs Vitals: Temp Pulse Resp BP Pulse Ox 98.6 F 111 H 16 119/79 98 03/07/20 12:12 03/07/20 12:12 03/07/20 12:12 03/07/20 12:12 03/07/20 12:12 - General General appearance: Appears well Notes: VITAL SIGNS: Within normal limits. GENERAL: No acute distress, non-toxic appearance. HEAD: Normal with no signs of head trauma. EYES: Conjunctiva normal, no discharge. EARS: Hearing grossly intact. NECK: Normal range of motion, no tenderness, supple, no lymphadenopathy, No adenopathy, no JVD. CHEST: Clear breath sounds bilaterally. No wheezes, rales, or rhonchi. CARDIAC: Regular rate and rhythm. S1 and S2, without murmurs, gallops, or rubs. VASCULAR: No Edema. ABDOMEN: Normal and soft. Epigastric discomfort to palpation. No right upper quadrant tenderness. LYMPATHTIC: No lymphadenopathy noted. MUSCULOSKELETAL: Good range of motion of all major joints. Extremities without clubbing, cyanosis or edema. NEUROLOGICAL: Alert and oriented x 3. No focal sensory or strength deficits. Speech normal. Follows commands appropriately. PSYCHIATRIC: Normal Affect, judgement and mood. SKIN: Normal appearance with no rashes or lesions. Course - Re-evaluation Re-evalutation: 03/07/20 19:27 Patient appears well on exam. Her glucose was slightly low. She was given juice and tolerated it without difficulty. I discussed all results with the patient. She states she feels much better after GI cocktail. She will be discharged with Pepcid and we will do a trial of Reglan as she already has Zofran and it is not working. Patient will follow up with GI. She was given strict return precautions. Patient is very agreeable to this plan. - Vital Signs Vital signs: Temp Pulse Resp BP Pulse Ox 98.6 F 88 18 122/72 100 03/07/20 12:12 03/07/20 19:33 03/07/20 19:33 03/07/20 19:33 03/07/20 19:33 - Laboratory Result Diagrams: 03/07/20 14:20 03/07/20 14:20 Laboratory results interpreted by me: 03/07/20 03/07/20 14:20 14:20 BUN 4 L Glucose 69 L Urine Protein 100 H Urine Ketones 80 H Urine Blood LARGE H Ur Leukocyte Esterase MODERATE H Discharge - Discharge Clinical Impression: Epigastric pain Nausea & vomiting Qualifiers: Vomiting type: unspecified Vomiting Intractability: non-intractable Qualified Code(s): R11.2 - Nausea with vomiting, unspecified Condition: Stable Disposition: HOME, SELF-CARE Instructions: Abdominal Pain ([facility]) Additional Instructions: Please follow-up with your family doctor and GI. Your work-up today is reassuring. Please make sure you are staying hydrated. Take your medication as prescribed. Please return to the ER for any worsening pain or symptoms. Prescriptions: Famotidine [Pepcid 20 mg Tablet] 20 mg PO DAILY #12 tablet Metoclopramide HCl [Reglan] 5 mg PO BID 5 Days #10 tablet Referrals: ELIO POOL MD [Primary Care Provider] - Follow up as needed JOSE ALBERTO WELLER MD [NO LOCAL MD] - Follow up as needed
--- NOTE | 2020-03-07 17:57 | RADIOLOGY REPORT (SQ) ---
EXAM DESCRIPTION: CT CHEST WITH IMAGES COMPLETED DATE/TIME: 03/07/2020 5:44 pm REASON FOR STUDY: abdominal pain, chest pain, recent endoscopy COMPARISON: None. TECHNIQUE: CT scan of the chest performed using helical scanning technique with dynamic intravenous contrast injection. Images reviewed with lung, soft tissue and bone windows. Reconstructed coronal and sagittal MPR and MIP images reviewed. All images stored on PACS. All CT scanners at this facility use dose modulation, iterative reconstruction, and/or weight based d osing when appropriate to reduce radiation dose to as low as reasonably achievable (ALARA). [facility]: Dose Right [facility]: CareDose [facility]: Dose Right [facility]: Teradose 4D [facility]: APJeT CONTRAST TYPE AND DOSE: 70 mL Omnipaque 350 RENAL FUNCTION: Creatinine - 0.71 BUN=4 RADIATION DOSE: CT Rad equipment meets quality standard of care and radiation dose reduction techniq ues were employed. CTDIvol: 4.8 - 6.1 mGy. DLP: 738 mGy-cm. . LIMITATIONS: None. FINDINGS: LUNGS AND PLEURA: No opacities, nodules, masses. No pneumothorax. No effusions. HILAR AND MEDIASTINAL STRUCTURES: Al well-circumscribed 8 mm in diameter fibrofatty density in the an terior mediastinum, probably represents residual thymic tissue. HEART AND VASCULAR STRUCTURES: No aneurysm or dissection. No central pulmonary emboli. No pericardi al effusion. HARDWARE: None in the chest. UPPER ABDOMEN: Please see CT abdomen and pelvis report. THYROID AND OTHER SOFT TISSUES: No masses. No adenopathy. BONES: No significant finding. OTHER: Bilateral breast implants. IMPRESSION: 1. No acute pulmonary findings. 2. A well-circumscribed fibrofatty density in the anterior mediastinum may represent residual thymic tissue. TECHNICAL DOCUMENTATION: JOB ID: [id number] Quality ID # [id number]: Final reports with documentation of one or more dose reduction techniques (e.g., Au tomated exposure control, adjustment of the mA and/or kV according to patient size, use of iterative reconstruction technique) 2010 [employer]- All Rights Reserved Reading location - IP/workstation name: [email or web address]
--- NOTE | 2020-03-07 18:07 | RADIOLOGY REPORT (SQ) ---
EXAM DESCRIPTION: CT ABD/PELVIS WITH IV ONLY IMAGES COMPLETED DATE/TIME: 03/07/2020 5:44 pm REASON FOR STUDY: abdominal pain, chest pain, recent endoscopy COMPARISON: None. TECHNIQUE: CT scan of the abdomen and pelvis performed using helical scanning technique with dynamic intravenous contrast injection. No oral contrast. Images reviewed with lung, soft tissue, and bone windows. Reconstructed coronal and sagittal MPR images reviewed. Delayed images for evaluation of the urinary system also acquired. All images stored on PACS. All CT scanners at this facility use dose modulation, iterative reconstruction, and/or weight based d osing when appropriate to reduce radiation dose to as low as reasonably achievable (ALARA). [facility]: Dose Right [facility]: CareDose [facility]: Dose Right [facility]: Teradose 4D [facility]: [email or web address] CONTRAST TYPE AND DOSE: contrast/concentration: Isovue 350.00 mmol/ml; Total Contrast Delivered: 70. 0 ml; Total Saline Delivered: 47.5 ml RENAL FUNCTION: Creatinine - 0.71 BUN=4 RADIATION DOSE: Total exam DLP: 738.29 mGy LIMITATIONS: None. FINDINGS: LOWER CHEST: Please see CT chest report. LIVER: Normal size. No masses. No dilated ducts. The hepatic and portal veins are patent. SPLEEN: Normal size. No focal lesions. PANCREAS: No masses. No significant calcifications. No adjacent inflammation or peripancreatic fluid collections. Pancreatic duct not dilated. GALLBLADDER: No identified stones by CT criteria. No inflammatory changes to suggest cholecystitis. ADRENAL GLANDS: No significant masses or asymmetry. RIGHT KIDNEY AND URETER: No solid masses. No significant calcifications. No hydronephrosis or hyd roureter. LEFT KIDNEY AND URETER: No solid masses. No significant calcifications. No hydronephrosis or hydr oureter. AORTA AND VESSELS: No aneurysm. No dissection. Renal arteries, SMA, celiac without stenosis. RETROPERITONEUM: No retroperitoneal adenopathy, hemorrhage or masses. BOWEL AND PERITONEAL CAVITY: No masses or inflammatory changes. No free fluid or peritoneal masses. APPENDIX: Normal. PELVIS: Bilateral small hypoattenuated adnexal structures may represent bilateral ovarian follicles. Very small amount of free fluid in the cul de sac, may be on a physiologic basis. Normal bladder. ABDOMINAL WALL: No masses. No hernias. BONES: No significant or acute findings. OTHER: No other significant finding. IMPRESSION: 1.NO ACUTE FINDING IN THE ABDOMEN OR PELVIS. 2. Additional findings as above. TECHNICAL DOCUMENTATION: JOB ID: [id number] Quality ID # [id number]: Final reports with documentation of one or more dose reduction techniques (e.g., Au tomated exposure control, adjustment of the mA and/or kV according to patient size, use of iterative reconstruction technique) 2010 [employer]- All Rights Reserved Reading location - IP/workstation name: [email or web address]
[2020-03-07 19:35] VITALS: BP 122/72
== END 2020-03-07 19:35 | disposition home or self-care (01) ==
LOC: ER 11:33
DX: R10.13 Epigastric pain (principal); R11.2 Nausea with vomiting, unspecified; Z87.820 Personal history of traumatic brain injury; Z88.6 Allergy status to analgesic agent
CPT/HCPCS: 99284; 96360; 36415; 84703; 85025; 80053; 81001; 71260; 74177; J3490; J7030